=== PATIENT | male | born 1960 | race Caucasian/White ===

== ENCOUNTER → 2024-08-20 13:42 | Outpatient (BNVA) | payer MEDICARE, SELFPAY | PROVIDERS: Family Provider Family Medicine; PCP Family Medicine; Referring Provider Nurse Practitioner Family; Visit Provider Dermatology | DX: L82.1 Other seborrheic keratosis (principal); L57.8 Other skin changes due to chronic exposure to nonionizing radiation; L81.4 Other melanin hyperpigmentation; D22.61 Melanocytic nevi of right upper limb, including shoulder; D22.5 Melanocytic nevi of trunk; I83.92 Asymptomatic varicose veins of left lower extremity; K40.90 Unilateral inguinal hernia, without obstruction or gangrene, not specified as recurrent; D48.5 Neoplasm of uncertain behavior of skin; L57.0 Actinic keratosis | CPT/HCPCS: 11102; 17000; 99203 ==

== ENCOUNTER → 2024-09-30 08:45 | Outpatient (BNVA) | payer MEDICARE, SELFPAY | PROVIDERS: Family Provider Family Medicine; PCP Family Medicine; Referring Provider Dermatology; Visit Provider Surgery | DX: R03.0 Elevated blood-pressure reading, without diagnosis of hypertension (principal); K40.20 Bilateral inguinal hernia, without obstruction or gangrene, not specified as recurrent; Z87.19 Personal history of other diseases of the digestive system | CPT/HCPCS: 99204 ==

== ENCOUNTER 2024-11-02 05:34 | Day surgery (SDC) | payer MEDICARE, SELFPAY ==
--- NOTE | 2024-10-31 10:44 | ANES.PREANE2 ---
Pre-Anesthetic Assessment Height/Weight: Height 6 ft 2 in Preop Diagnosis: Bilateral inguinal hernias Operation Date: 11/02/24 07:00 Proposed Procedures p Laparoscopic/ possible open Inguinal Hernia Repair with mesh 30004, K40.20(Bilateral) - Cliff Ballard MD Was Beta Da taken within 24 hours: N/A Was Clonidine taken within 24 hours: N/A Social No alcohol and No tobacco Exam alert, oriented x 3, clear to auscultation bilaterally and regular rate & rhythm Airway Submandibular: within normal limits Cervical ROM: within normal limits Mallampati: Class II Dentition: full Anesthetic Plan ASA status: 1 Anesthesia: General Other: Patient has a history of PONV, this occurred following lymph node dissection NPO since midnight Denies any cardiac or pulmonary issues Very healthy individual takes no medications at baseline Scopolamine patch applied Plan for general anesthesia Medications/Allergies Home Medications ?Medication ?Instructions ?Recorded ?Confirmed ?Last Taken ?Type No Known Home Medications 12/30/19 11/02/24 Unknown History Allergies Allergy/AdvReac Type Severity Reaction Status Date / Time No Known Allergies Allergy Verified 10/29/24 10:29 [facility] Anesthesia Medical History (Updated 09/30/24 @ 09:12 by Cliff Ballard MD) Lower urinary tract symptoms (LUTS) Erectile dysfunction Surgical History (Updated 09/30/24 @ 08:52 by OSVALDO Salas) History of cataract surgery H/O hernia repair RIGHT INGUINAL HERNIA H/O carpal tunnel repair H/O lymph node excision RT AXILLA Family History Mother No problems noted. 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
[2024-11-02] VITALS (13 sets, daily range): BP systolic 82–108; BP diastolic 44–74; PULSE 46–65; RESP 11–20; TEMP 36.1–36.2; O2SAT 96–100; BMI 26.3
--- NOTE | 2024-11-02 05:41 | W.PM.OPSFHP ---
Same Day Surgery H&P Indication for Procedure/HPI DATE OF PROCEDURE: November 02, 2024 CHIEF COMPLAINT/INDICATIONFOR SURGICAL PROCEDURE: left inguinal hernia, possible right recurrence PREOP DIAGNOSIS: bilateral inguinal hernia PLANNED PROCEDURE: Operation Date: 11/02/24 07:00 Proposed Procedures p Laparoscopic/ possible open Inguinal Hernia Repair with mesh 37310, K40.20(Bilateral) - Cliff Ballard MD Medications/Allergies* Home Medications ?Medication ?Instructions ?Recorded ?Confirmed ?Type No Known Home Medications 12/30/19 09/30/24 History Allergies/Adverse Reactions Allergy/AdvReac Type Severity Reaction Status Date / Time No Known Allergies Allergy Verified 10/29/24 10:29 Pertinent History/Comorbid Conditions* Medical History (Updated 09/30/24 @ 09:12 by Cliff Ballard MD) Lower urinary tract symptoms (LUTS) Erectile dysfunction Surgical History (Updated 01/03/20 @ 21:36 by Mariola Mariee APRN) History of cataract surgery H/O hernia repair RIGHT INGUINAL HERNIA H/O carpal tunnel repair H/O lymph node excision RT AXILLA Family History (Updated 12/30/19 @ 15:23 by Nahomi Shepard LPN) Father, AT AGE 90 Alzheimers disease Father Social History Smoking and tobacco/nicotine status: never used tobacco/nicotine Alcohol intake: current Alcohol intake frequency: holidays/special occasions only Marital status: Current occupational status: employed Current occupation: [employer] Pertinent Exam Findings alert, oriented x 3, clear to auscultation bilaterally and regular rate & rhythm Recommendations Surgery/Procedure today Coding Level of Care Code Acute Code for Chg Fwd
[2024-11-02] MEDS: sodium chloride 0.9% 1,000 ML 30 ML IV (06:37)
[2024-11-02] MEDS: scopolamine 1 mg PATCH 1 PATCH TRANSDERMA (06:38)
[2024-11-02] MEDS: ceFAZolin 2,000 mg SDV 2000 MG IVP (06:58)
[2024-11-02] MEDS: BUPivacaine 0.25% INJ 10 mL INJECTION (08:30)
[2024-11-02] MEDS: lidocaine-epi 1% 20 mL INJ INJECTION (08:30)
--- NOTE | 2024-11-02 08:46 | PM.OP ---
Operative Report Date of procedure: November 02, 2024 Pre-op diagnosis: Left inguinal hernia, possible right inguinal hernia recurrent Post-op diagnosis: Left inguinal hernia Post-op findings: There was an indirect left inguinal hernia. There was a small direct left inguinal hernia. On the right no evidence of direct hernia. No evidence of protrusion with Valsalva maneuver. Peritoneum was a scarred to the internal ring but no actual hernia sac. Procedure done: Laparoscopic repair of left inguinal hernia Implants: Extra-large left-sided Bard 3D max mesh Surgeon: Cliff Ballard MD [employer] Records Clerk: GUI OR STaff Estimated blood loss: 5 Complications: none Brief History: 64-year-old male who presents to my office with a left inguinal hernia and concern for possible recurrence on the right side. After discussion of all risk and benefits documented my. Note with side to proceed with laparoscopic bilateral inguinal hernia repair with mesh. Procedure: Patient was brought into the OR. He was placed in a supine position. General anesthesia was given. The abdomen was prepped and draped in the usual sterile fashion. A timeout was conducted. A 1.5 cm infraumbilical incision was made. The incision was deepened until the anterior rectus sheath was identified. The left rectus sheath was then opened with electrocautery. The rectus muscle was retracted laterally allowing access to the rectal rectus space. With careful advancement we placed Spacemaker into the retrorectus space and advanced to the level of the pubic tubercle. The Spacemaker was opened under direct visualization developing the preperitoneal space. The Spacemaker was removed and replaced with a 12 mm balloon trocar. Additional 5 mm trocars were placed in the suprapubic and infraumbilical location under direct visualization. With careful blunt dissection I was able to completely visualize the pubis and except 2 cm inferior to the pubis to allow space for the mesh. I then Concentra my first on the left side I was able to visualize the left femoral vein and there was a small direct hernia that was reduced. I then proceeded to develop the lateral space of [place], after the space was properly developed I then placed my efforts at the level of the cord where a small hernia sac was noted. The hernia sac was peeled down from the vas deferens and cord structures. It was completely filled out and about 5 cm lower than the internal ring. The critical view of safety of the inguinal canal was achieved. I then placed a extra-large left-sided 3D max mesh in the space. The mesh was covering the direct indirect and femoral spaces with adequate overlapping and extended all the way down to the midline. There was no need for fixation as the mesh occupied a complete the space. I then placed my attention to the right side. I first asked anesthesia to do a Valsalva maneuver no evidence of bulging or any changes at the level of the right groin were noted. I proceeded to carefully dissect the right side, there was no evidence of direct hernia. On the lateral space the peritoneum is completely scarred down to the abdominal wall consistent with previous surgery. The peritoneum was also completely scarred down to the internal ring. During dissection I may get whole in the peritoneum. Through this whole leg was able to visualize that there was not a true hernia sac. At this point I decided to close the peritoneal hole with several 5 mm clips. No further dissection was necessary as there was no evidence of a hernia on this side and additional dissection was not safe in the setting of significant scarring from previous surgery. Hemostasis was verified. The properitoneal space was desufflated under direct visualization showing correct position of the mesh. The trocars were removed. I asked our anesthesia team to do 1 more time a Valsalva maneuver, no evidence of hernia on the left and there was no evidence of any bulging or hernia on the right side. The anterior rectus sheath was then closed with #0 Vicryl. Local anesthesia was infiltrated in the wounds. The wounds were closed in layers using #3-0 Vicryl for the subcutaneous tissue and #4 Monocryl for the skin and Dermabond was applied. At the end of the procedure all counts were correct, the patient tolerated well the procedure was transferred to the PACU in stable condition
--- NOTE | 2024-11-02 09:02 | ANES.PROC ---
Anesthesia Procedures Procedure/Date: 11/02/24 Nerve Block ^: Nerve Block 1: Main Anesthesia: general anesthesia Time Out Performed: Yes Consent: requested by attending/covering physician and from patient Nerve block location: other (bilateral TAP block) Anesthesia monitors applied: pulse oximetry, EKG, BP cuff and oxygen Nerve block position: supine Anesthetic Used: other (ropivicaine 0.2%) Amount of anesthesia used (mL): 60 Ultrasound used to: recognize landmarks Nerve Stimulator Used?: No Interscalene/Femoral BLK: other needle (pjunk 4inch) Injection: neg aspiration of heme Patient Tolerated Procedure: well Complications: none
--- NOTE | 2024-11-02 10:35 | ANE.PACU2 ---
Inpatient post-anesthesia follow up: Airway intact: Yes Vital signs: Temperature 97.0 F Pulse Rate 49 Respiratory Rate 18 Blood Pressure 99/64 Pulse Oximetry 98 Oxygen Delivery Me thod Room Air Oxygen Flow Rate 10 Fraction of Inspir ed Oxygen Hydration adequate: Yes Nausea and vomiting: No Pain level: 1 Mental status: Baseline
== END 2024-11-02 10:35 | disposition home or self-care (01) ==
PROVIDERS: PCP Family Medicine; Visit Provider Surgery
PROC: (CPT 49650; principal; 2024-11-02 07:00)
DX: K40.90 Unilateral inguinal hernia, without obstruction or gangrene, not specified as recurrent (principal)
CPT/HCPCS: 49650; 51702; J0131; J0690; J1100; J1171; J1200; J1885; J2371; J2405; J2704; J3010; J3490; J7030

== ENCOUNTER → 2024-12-01 14:24 | Outpatient (BNVA) | payer MEDICARE, SELFPAY | PROVIDERS: PCP Family Medicine; Visit Provider Surgery | DX: Z98.890 Other specified postprocedural states (principal); Z87.19 Personal history of other diseases of the digestive system | CPT/HCPCS: 99024 ==

== ENCOUNTER → 2025-09-15 13:39 | Outpatient (BNVA) | payer MEDICARE, SELFPAY | PROVIDERS: PCP Family Medicine; Visit Provider Nurse Practitioner Family | DX: L57.0 Actinic keratosis (principal); L82.0 Inflamed seborrheic keratosis; L81.4 Other melanin hyperpigmentation; D22.5 Melanocytic nevi of trunk; L57.8 Other skin changes due to chronic exposure to nonionizing radiation | CPT/HCPCS: 17000; 17110; 99213 ==